=== PATIENT | female | born 1955 | race Caucasian/White ===

== ENCOUNTER 2023-03-22 12:41 | Emergency (ER) | payer MEDICARE, SELFPAY ==
--- NOTE | 2023-03-22 13:21 | ED.WOUNDLAC ---
HPI - Wound/Laceration General Chief Complaint: Wound/Laceration Stated Complaint: lt middler finger laceration Time Seen by Provider: 03/22/23 14:18 Source: patient and RN notes reviewed Mode of arrival: ambulatory Limitations: no limitations History of Present Illness HPI narrative: 67-year-old female presents with concern for laceration to the 3rd digit of the left hand. Reports she was trying to separate frozen chicken breast with a paring knife when she cut her finger. She is up-to-date on her tetanus vaccination. Related Data Home Medications Medication Instructions Recorded Confirmed acetaminophen 500 mg capsule 500 mg PO Q6H 12/30/21 08/14/22 aspirin 81 mg chewable tablet 81 mg PO DAILY 12/30/21 08/14/22 cholecalciferol (vitamin D3) 25 25 mcg PO DAILY 12/30/21 08/14/22 mcg (1,000 unit) capsule cyanocobalamin (vitamin B-12) 500 500 mcg PO BID 12/30/21 08/14/22 mcg tablet ibuprofen 200 mg tablet 200 mg PO Q6H PRN 12/30/21 08/14/22 magnesium 200 mg tablet 250 mg PO DAILY 12/30/21 08/14/22 qlfjoylh-vjbs-rwoe 8 mg-folic 400 1 tablet PO DAILY 12/30/21 08/14/22 mcg-K 50 mcg-lutein 300 mcg tablet (Centrum Silver Women) ascorbate calcium (vitamin C) 500 500 mg PO DAILY 07/13/22 08/14/22 mg tablet estradiol 0.5 mg tablet 0.5 mg PO WEEKLY 07/13/22 08/14/22 garlic 100 mg tablet 1,000 mg PO DAILY 07/13/22 08/14/22 levothyroxine 88 mcg tablet 88 mcg PO DAILY 09/17/22 Allergies Allergy/AdvReac Type Severity Reaction Status Date / Time Sulfa (Sulfonamide Allergy Severe Hives Verified 12/01/22 10:23 Antibiotics) sulfamethoxazole Allergy Severe HIVES, Verified 12/01/22 10:23 SWELLING itraconazole Allergy Unknown Hives Verified 12/01/22 10:23 trimethoprim Allergy Unknown Unknown Verified 12/01/22 10:23 amoxicillin AdvReac Severe Nausea and Verified 12/01/22 10:23 Vomiting Review of Systems Review of Systems: CONSTITUTIONAL: Denies malaise, chills, sweats, or fever. SKIN: Reports laceration to the 3rd digit of the left hand MUSCULOSKELETAL: Denies muscle skeletal pain NEUROLOGIC: Denies numbness, weakness All systems reviewed & are unremarkable except as noted in HPI and below PMFSH Past Medical History Medical History Broken wrist Cataract History of hysterosalpingogram Toenail fungus Surgical History Surgical History H/O hysterectomy for benign disease History of Achilles tendon repair History of endometrial ablation Family History Family History Mother Hypertension Breast cancer Diabetes mellitus Cerebrovascular accident Father Heart disease Other Family history of allergic disorder Family history of cardiac disorder Family history of malignant neoplasm of breast in first degree relative Family history of type 2 diabetes mellitus Social History Social History Smoking status: Never smoker Second hand tobacco smoke exposure: No Alcohol intake: current Drinks per week: 2 Substance use: never Substance use type: does not use Lack of Transportation: No Lack of Food: Never True Current Housing: I Have Housing Concerned About Future Housing: No Difficulty Paying Gas/Electric Bills: No Difficulty Paying for Meds: No Currently Unemployed: No Education: High School Diploma/GED Difficulty w/ Childcare or Family Care: No Living arrangements: with family Occupation/Education: retired Gender identity (if verbalized by the patient): Female Sexual Orientation (if Verbalized by the Patient): Straight or Heterosexual Comments At time of signature, agree with nursing past medical, surgical, social and family history. There is no relevant family history pertinent to the presenting complaint Exam Narrative: GENERAL: Wel
[2023-03-22 14:00] VITALS: BP 172/90; PULSE 62; RESP 16; TEMP 37; O2SAT 100
== END 2023-03-22 14:55 | disposition home or self-care (01) ==
PROVIDERS: Emergency Provider Nurse Practitioner; PCP Physician Assistant Medical
DX: S61.213A Laceration without foreign body of left middle finger without damage to nail, initial encounter (principal); W26.0XXA Contact with knife, initial encounter; H26.9 Unspecified cataract; Z79.82 Long term (current) use of aspirin
CPT/HCPCS: 12001; 99212; G0463

== ENCOUNTER 2024-05-08 16:38 | Emergency (ER) | payer MEDICARE, SELFPAY ==
[2024-05-08 16:53] VITALS: BP 154/93; PULSE 79; RESP 18; TEMP 36.4; O2SAT 100
--- NOTE | 2024-05-08 17:00 | ED.WOUNDLAC ---
HPI - Wound/Laceration General Chief Complaint: Wound/Laceration Stated Complaint: RT Hand Injury Time Seen by Provider: 05/08/24 17:01 Source: patient, RN notes reviewed and old records reviewed Mode of arrival: ambulatory Limitations: no limitations History of Present Illness HPI narrative: 68 year old female presents to the [facility] with a laceration caused by a broken glass to the right hand palmar aspect proximal 5th metacarpal area. Bleeding is controlled. Last Tdap was 12/2021 Related Data Home Medications ?Medication ?Instructions ?Recorded ?Confirmed ?Last Taken ?Type acetaminophen 500 mg capsule 500 mg PO Q6H 12/30/21 12/30/23 Unknown History aspirin 81 mg chewable tablet 81 mg PO DAILY 12/30/21 12/30/23 Unknown History cholecalciferol (vitamin D3) 25 25 mcg PO DAILY 12/30/21 12/30/23 Unknown History mcg (1,000 unit) capsule cyanocobalamin (vitamin B-12) 500 500 mcg PO BID 12/30/21 12/30/23 Unknown History mcg tablet magnesium 200 mg tablet 250 mg PO DAILY 12/30/21 12/30/23 Unknown History dkualyii-hjhs-wrjm 8 mg-folic 400 1 tablet PO DAILY 12/30/21 12/30/23 Unknown History mcg-K 50 mcg-lutein 300 mcg tablet (Centrum Silver Women) garlic 100 mg tablet 1,000 mg PO DAILY 07/13/22 12/30/23 Unknown History cetirizine 10 mg tablet (Zyrtec) 10 mg PO DAILY PRN 08/16/23 12/30/23 Unknown History estradiol 0.05 mg/24 hr weekly 1 patch transdermal WEEKLY 11/04/23 12/30/23 Unknown History transdermal patch Allergies Allergy/AdvReac Type Severity Reaction Status Date / Time itraconazole Allergy Intermediate Hives Verified 05/08/24 16:50 sulfamethoxazole Allergy Intermediate HIVES, Verified 05/08/24 16:50 SWELLING trimethoprim Allergy Intermediate Hives Verified 05/08/24 16:50 Sulfa (Sulfonamide Allergy Mild Hives Verified 05/08/24 16:50 Antibiotics) amoxicillin AdvReac Intermediate Nausea and Verified 05/08/24 16:50 Vomiting Review of Systems Review of Systems: All systems reviewed & are unremarkable except as noted in HPI and below Constitutional: Constitutional: Reports no additional constitutional complaints ENT: Reports system reviewed and no additional complaints, except as documented Cardiovascular: Cardiovascular: Reports no additional cardiovascular complaints, Denies chest pain and Denies dyspnea Respiratory: Respiratory: Reports no additional respiratory complaints, Denies chest congestion, Denies cough and Denies dyspnea Musculoskeletal: Musculoskeletal: Reports no additional musculoskeletal complaints Integumentary/Breasts: Skin/Breast: Reports as per [facility] Past Medical History Medical History CKD (chronic kidney disease), stage II Broken wrist Cataract History of hysterosalpingogram Burn of hand, left, second degree Toenail fungus Surgical History Surgical History History of endometrial ablation History of Achilles tendon repair H/O hysterectomy for benign disease Family History Family History Mother Hypertension Breast cancer Diabetes mellitus Cerebrovascular accident Father Heart disease Other Family history of allergic disorder Family history of cardiac disorder Family history of malignant neoplasm of breast in first degree relative Family history of type 2 diabetes mellitus Social History Social History Social History: 12/23/23 Patient declined SDOH Smoking status: Never smoker Second hand tobacco smoke exposure: No Alcohol intake: current Drinks per week: 2 Substance use: never Substance use type: does not use Lack of Transportation: No Lack of Food: Never True Current Housing: I Have Housing Concerned About Future Housing: No Difficulty Paying Gas/Electric Bills: No Difficulty Paying for Meds: No Currently Unemployed: No Education: High School Diploma/GED Difficulty w/ Childcare or Family Care: No Living arrangements: with family Occupation/Education: retired Gender identity (if verbalized by the patient): Female Sexual Orientation (if Verbalized by the Patient): Straight or Heterosexual Comments At the time of my signature, I reviewed and agree with the nursing past medical, surgical, social, and family history. There is no relevant family history pertinent to the patient complaint. Exam Const: General: cooperative, healthy appearing, comfortable, no acute distress, well developed, alert and well nourished Nutritional Appearance: well nourished Orientation/consciousness: patient oriented x3 Limitations: no limitations HENMT: Head: normal to inspection Eyes: General: appearance normal, both eyes and all related structures Alignment and Position: alignment normal Neck: Neck: normal visual inspection, full ROM, no lymphadenopathy and no meningeal signs Chest: Chest palpation & inspection: normal inspection of the chest Resp: Effort & Inspection: normal respiratory effort and able to speak in complete sentences Auscultation: clear to auscultation bilaterally, no crackles, no rales, no rhonchi and no wheezes Cardio: Rate: regular rate Skin: General skin exam: normal color and no rashes or lesions noted Wounds: wounds noted Other: Right hand laceration Neuro: General: patient oriented x3, gait normal, moves all extremities and no meningeal signs Cognition (Neuro): normal cognition Speech: normal speech Gait exam (Neuro): Normal gait present Extrem: General: normal to inspection, full ROM, capillary refill normal and normal gait Psych: Appearance: grossly normal and well kempt Mental Status: mental status grossly normal Speech and movement: Normal speech and movement present and Clear speech present Affect: normal affect Attitude: cooperative Course Course Level of Care: Express Care Visit Vital Signs Vital signs: Vital Signs Temperature 97.5 F L 05/08/24 16:53 Pulse Rate 79 05/08/24 16:53 Respiratory Rate 18 05/08/24 16:53 Blood Pressure 154/93 H 05/08/24 16:53 Pulse Oximetry 100 05/08/24 16:53 Oxygen Delivery Room Air 05/08/24 16:53 Temperature 97.5 F L 05/08/24 16:53 Pulse Rate 79 05/08/24 16:53 Respiratory Rate 18 05/08/24 16:53 Blood Pressure 154/93 H 05/08/24 16:53 Pulse Oximetry 100 05/08/24 16:53 Oxygen Delivery Room Air 05/08/24 16:53 Reviewed Procedures Laceration Laceration 1: Date: 05/08/24 Time: 17:20 Site: hand Side (If applicable): right Size (cm): 1.5 Description: linear Depth: simple, single layer Local Anesthetic: lidocaine 1% Amount of anesthesia used (mL): 4.5 Pre-repair: wound explored and irrigated (100) ====== Skin Level ====== Skin layer closed with: nylon Size (cm): 5-0 Number of sutures: 5 Technique: simple, interrupted ====== Subcutaneous Layer ====== ====== Muscle Layer ====== ====== Tendon Layer ====== MDM - Wound/Laceration MDM Narrative Medical decision making narrative: Patient sitting comfortably in exam room. Nontoxic, vitals stable except blood pressure mildly elevated. Patient presents after cutting hand on a broken glass. Five sutures placed. Tape patient tolerated well. Patient is appropriate for outpatient treatment with close follow-up Discharge instructions reviewed with patient, as well as provided in writing per nursing staff. The instructions also include specific and strict return/GO TO THE ER as well as f/u information. All questions have been answered, and the patient deny any further questions with discharge and discharge plan. Some parts of this dictation were generated by voice recognition software and may contain typographical and/or grammatical inaccuracies. Differential Diagnosis Differential diagnosis: Likely laceration, abrasion and avulsion of skin Critical Care Time Critical Care Time Critical Care Time: No Discharge Plan Discharge Clinical Impression: Laceration of hand, right Qualifiers: Encounter type: initial encounter Foreign body presence: without foreign body Qualified Code(s): S61.411A - Laceration without foreign body of right hand, initial encounter Patient Disposition: Home, Self-Care Condition: Stable Instructions: Antibiotic Form, Care For Your Stitches (ED), Laceration (ED) Additional Instructions: Wash area twice daily with warm soapy water, pat dry. Wear a Band-Aid when not at home. When at home try leaving open to air for minimum of 4-5 hours per day. Ice and elevate every 2-3 hours for 15-20 minutes while awake. Take Tylenol as needed for pain per package instructions Follow-up with primary care provider in approximately 12-14 days for suture removal Patient Language: Turkish Prescriptions: No Action cholecalciferol (vitamin D3) 25 mcg (1,000 unit) capsule 25 mcg PO DAILY magnesium 200 mg tablet 250 mg PO DAILY cyanocobalamin (vitamin B-12) 500 mcg tablet 500 mcg PO BID aspirin 81 mg tablet,chewable 81 mg PO DAILY Centrum Silver Women 8 mg iron-400 mcg-300 mcg tablet 1 tablet PO DAILY acetaminophen 500 mg capsule 500 mg PO Q6H garlic 100 mg tablet 1,000 mg PO DAILY estradiol 0.05 mg/24 hr patch weekly 1 patch transdermal WEEKLY cetirizine [Zyrtec] 10 mg tablet 10 mg PO DAILY PRN ubrogepant 50 mg tablet 50 mg tablet 0RF levothyroxine 100 mcg tablet 100 mcg PO DAILY Qty: 90 1RF Rx Instructions: DOSE INCREASE 12/20/23 amitriptyline 25 mg tablet 25 mg PO QHS Qty: 90 0RF rizatriptan 10 mg tablet 10 mg PO ONCE Qty: 36 0RF Rx Instructions: as a single dose. Follow-up/Referrals: Giulia Hall PA-C [Primary Care Provider] - 2 Weeks ([facility] follow-up, blood pressure check, 154/93 Suture removal) Time of Disposition: 17:36
--- OUTSIDE RECORDS SUMMARY | 2024-05-08 18:53 | XMS_ITS | Clinical Summary ---
Author Organization [facility] Address [address] [place] [address] Care Team Providers Care Cyber Analyst Name Role Phone Unavailable Primary Care Provider Unavailabl e Source Comments [facility] [employer],non-owned Affiliates and Associated Physician Practices is amultiple site organization consisting of ambulatory clinics and hospital sitesin [place], [place], [place] and [place]. This disclosure is being madepursuant to the Care Everywhere program and may not contain all information available regarding this patient. Last updated 17.[facility] [employer] Social History Tobacco Use Types Packs/Day Years Used Date Smoking Tobacco: Never Assessed Sex and Gender Information Value Date Recorded Sex Assigned at Not on file Gender Identity Not on file Sexual Orientation Not on file Plan of Treatment Health Maintenance Due Date Last Done Comments BONE DENSITY TESTING 1955 COLOGUARD (AGES 45-75) - COL ON CA SCREENING 1955 COLON MONITORING 1955 COLONOSCOPY - COLON CA SCREENING 1955 CT COLONOGRAPHY - COLON CA SCREENING 1955 Colorectal Cancer Screening 1955 FIT - COLON CA SCREENING 1955 FLEX SIG - COLON CA SCREENING 1955 LIPID TESTING 1955 MAMMOGRAM 1955 HEPATITIS C SCREENING 09/08/1973 DTAP/TDAP/TD VACCINES (1 - Tdap) 09/12/1974 PNEUMOCOCCAL VACCINE 50+ (1 of 1 - PCV) 09/12/2005 ZOSTER VACCINE (1 of 2) 09/12/2005 COVID-19 VACCINE ( - 2023-2 5 season) 2023 INFLUENZA VACCINE (#1) 2023 DEPRESSION SCREENING 02/23/2024 Respiratory Syncytial Virus (RSV) Vaccine Pt: or over 60 yrs (1 - 1-dose 75+ series) 09/12/2030 HEPATITIS B VACCINE Aged Out No longe r eligible based on patient's age to complete this topic HIB VACCINE Aged Out No longer eligi ble based on patient's age to complete this topic HPV VACCINE Aged Out No longer eligi ble based on patient's age to complete this topic MENINGOCOCCAL (Group B) VACC INE SHARED DECISION-MAKING Aged Out No longer eligibl e based on patient's age to complete this topic MENINGOCOCCAL GROUPS A/C/Y/W VACCINE Aged Out No longer eligible b ased on patient's age to complete this topic
--- OUTSIDE RECORDS SUMMARY | 2024-05-08 18:53 | XMS_ITS | Referral Summary ---
Author Organization [facility] Address [address] [place] [address] Care Team Providers Care Testing Lead Name Role Phone Unavailable Primary Care Provider Unavailabl e Source Comments [facility],non-owned Affiliates and Associated Physician Practices is amultiple site organization consisting of ambulatory clinics and hospital sitesin [place], [place], [place] and [place]. This disclosure is being madepursuant to the Care Everywhere program and may not contain all information available regarding this patient. Last updated 17.[facility] Social History Tobacco Use Types Packs/Day Years Used Date Smoking Tobacco: Never Assessed Sex and Gender Information Value Date Recorded Sex Assigned at Not on file Gender Identity Not on file Sexual Orientation Not on file Plan of Treatment Not on file
--- OUTSIDE RECORDS SUMMARY | 2024-05-08 18:53 | XMS_ITS | Encounter Summary ---
Author Organization [facility] Address [address] [place] [address] Care Team Providers Care Supplier Engineer Name Role Phone Giulia Hall Primary Care Provider Encounter Details Date Type Department Care Team (Late st Contact Info) Description 12/15/2023 [facility] Message [address] [id number] [facility], [facility] Provider Customer Service Inquiry - New Account Device Linked Communication Social History Tobacco Use Types Packs/Day Years Used Date Smoking Tobacco: Never Assessed Comments Unknown Sex and Gender Information Value Date Recorded Sex Assigned at Female 03/07/2024 1:39 PM AERODYNAMIC CONSULTANT Legal Sex Female 5:50 PM CDT Gender Identity Not on file Sexual Orientation Not on file documented as of this encounter Plan of Treatment Upcoming Encounters Date Type Department Care Team (Late Contact Info) Description 06/19/2024 3:30 PM CDT Appointment [facility] [address] [place] [address] Parris Velasquez MD [address] [place], [place] [id number] 06/20/2024 8:00 AM CDT Laboratory Only [facility] [address] [place] [address] Kingsley Cosme MD [address] [place] [address] documented as of this encounter Visit Diagnoses Not on filedocumented in this encounter Care Teams Supplier Engineer Relationship Specialty Start Date End Date Giulia Hall PA [address] [place] [id number] PCP - General PHYSICIAN CENTRAL OFFICE MECHANIC 01/07/22 documented as of this encounter
--- OUTSIDE RECORDS SUMMARY | 2024-05-08 18:53 | XMS_ITS | Patient Health Summary ---
Author Organization [facility] Address [address] [place] [address] Care Team Providers Care Audiovisual Equipment Operator Name Role Phone Unavailable Primary Care Provider Unavailabl e Note from [facility],non-owned Affiliates and Associated Physician Practices is amultiple site organization consisting of ambulatory clinics and hospital sitesin [place], [place], [place] and [place]. This disclosure is being madepursuant to the Care Everywhere program and may not contain all information available regarding this patient. Last updated 17.[facility] [employer] Social History Tobacco Use Types Packs/Day Years Used Date Smoking Tobacco: Never Assessed Sex and Gender Information Value Date Recorded Sex Assigned at Not on file Gender Identity Not on file Sexual Orientation Not on file Procedures * DERMATOPATHOLOGY(Performed 03/21/2013) * CYTOLOGY SMEAR PAP(Performed 11/26/1997) * CYTOLOGY SMEAR PAP(Performed 12/19/1996) * CYTOLOGY PAP TAX SPECIALIST(Performed 11/19/1995) Results * PATHOLOGY TISSUE FOR DERMATOLOGY (03/21/2013 12:00 AM MURAL ARTIST) Result CASE: [id number] PATIENT: PAOLA MORGAN PATHOLOGIC DIAGNOSIS: A. Left forearm: DERMATOFIBROMA B. Right ant. shoulder: SEBORRHEIC KERATOSIS, IRRITATED AND INFLAMED CLINICAL DATA: A: R/O foreign body. B: R/O BCC, ISK. Check margins. GROSS DESCRIPTION: A: Received is one formalin filled container labeled with the patient's name and designated left forearm. The specimen consists of a punch biopsy measuring [id number]. Jar 0. B: Received is one formalin filled container labeled with the patient's name and designated right ant shoulder. The specimen consists of a shave biopsy measuring 9x6x2 mm. Jar 0. MICROSCOPIC DESCRIPTION: SPECIMEN A: Within the dermis, there are fibrohistiocytic cells in haphazard array among coarse collagen bundles. There is overlying epidermal hyperplasia. There is no polarizable material present. SPECIMEN B: Sections show acanthosis, papillomatosis, hyperkeratosis, and squamous eddies. There is a lymphohistiocytic infiltrate within the papillary dermis. Electronically signed out by Geno Herrera M.D. 03/23/2013 2:19:22PM [facility] Comment: Performed at: Dermatopathology Laboratory [facility] Department of Dermatology [address] [place] [address], [address] [place] [address] Phone number: [phone] FAX: [phone] 03/21/2013 03/22/2013 Oracio Houston MD LAB - PATHOLOGY/CYTO LOGY ORDERABLES [facility] [address] [place] [address]. [address] [place] [address], [facility] [phone] * CYTOLOGY SMEAR PAP (11/26/1997 10:09 AM CDT) Only the most recent of2 resultswithin the time period is included. Result CASE NUMBER [id number] Comment: ORDERING PHYSICIAN ANAND BAUER SPECIMEN TYPE PAP Smear Date 11/26/1997 Procedure Vaginal, 1 smear received Specimen Adequacy Satisfactory for Evaluation Categorization Within Normal Limits Snomed. 12/05/1997 1520 <1> Contact Lens Cutter Andre Stockton (ASCP) PAP Footnote The PAP smear is only a screening procedure to aid in the detection of cervical cancer and its precursors. It is not a diagnostic procedure and should not be used as the sole means to detect cervical cancer. Both false negative and false positive results have been experienced. MISCELLANEOUS SAMPLES / Unknown 11/26/1997 10:09 AM CDT 11/30/1997 10:09 AM CDT Historical Provider LAB - PATHOLOGY/C YTOLOGY ORDERABLES * CYTOLOGY PAP TAX SPECIALIST (11/19/1995 10:30 AM CDT) Result CASE NUMBER [id number] Comment: ORDERING PHYSICIAN ANAND BAUER SPECIMEN TYPE PAP Smear Date 11/19/1995 Procedure Vaginal Specimen Adequacy Satisfactory for Evaluation Categorization Within Normal Limits Contact Lens Cutter Andre Mcmahan(ASCP) MISCELLANEOUS SAMPLES / Unknown 11/19/1995 10:30 AM CDT 11/20/1995 10:30 AM CDT Historical Provider LAB - PATHOLOGY/C YTOLOGY ORDERABLES
--- OUTSIDE RECORDS SUMMARY | 2024-05-08 18:53 | XMS_ITS | Clinical Summary ---
Author Organization [facility] Address [address] [place] [id number] Care Team Providers Care [employer] Penc[employer] Dipper Name Role Phone Marni Hall Primary Care Provider [phone] Encounters Date Type Department Care Team Description 04/27/2024 Patient Self-Triage [facility] DEFAULT [facility] Provider 03/07/2024 1:40 PM GRAIN THRESHER - 03/07/2024 11:59 PM [facility] Hospital Encounter [facility] Diagnostic Imaging [address] [place] [address] Marni Hall PA Discharge Disposition: Home or Self Care (Routine Discharge) 03/07/2024 Travel from Last 3 Months Family History Medical History Relation Comments Breast Cancer Maternal Aunt Breast Cancer Mother Relation Status Comments Maternal Aunt Alive Mother Social History Tobacco Use Types Packs/Day Years Used Date Smoking Tobacco: Never Assessed Comments Unknown Sex and Gender Information Value Date Recorded Sex Assigned at Female 03/07/2024 1:39 PM GRAIN THRESHER Legal Sex Female 5:50 PM CDT Gender Identity Not on file Sexual Orientation Not on file Last Filed Vital Signs Vital Sign Reading Time Taken Comments Blood Pressure 118/82 07/28/2013 11:36 AM CDT Pulse 53 07/28/2013 11:36 AM CDT Temperature - - Respiratory Rate - - Oxygen Saturation - - Inhaled Oxygen Concentration - - Weight 62.6 kg (138 lb) 07/28/2013 11:36 AM CDT Height 162.6 cm (5' 4 ) 07/28/2013 11:36 AM CDT Body Mass Index 23.69 07/28/2013 11:36 AM CDT Plan of Treatment Upcoming Encounters Date Type Department Care Team (Late st Contact Info) Description 06/19/2024 3:30 PM CDT Appointment [facility] Mammography [address] [place] [address] Racquel Mendoza MD [address] [place] [address] 06/20/2024 8:00 AM CDT Laboratory Only [facility] [address] [place] [address] Kingsley Cosme MD [address] [place] [address] Health Maintenance Due Date Last Done Comments Colorectal Cancer Screening Colonoscopy (10 Years) 1955 Depression Screening PHQ-9 1967 Hepatitis C 09/12/1973 Zoster Vaccines (1 of 2) 09/12/2005 Annual Medicare Wellness Visit 09/12/2020 Pneumococcal Vaccine: 65+ Years (1 of 1 - PCV) 09/12/2020 DTaP, Tdap and Td Vaccines (2 - Td or Tdap) 06/06/2022 06/06/2012 COVID-19 Vaccine (3 - season) 2023 06/13/2020, 05/16/2020 Influenza Adult (#1) 2023 Mammogram Screening 06/16/2025 06/17/2023, 05/22/2022, 04/20/2022, Additional history exists RSV Immunization or 60+ Years (1 - 1-dose 75+ series) 09/12/2030 Dexa Scan (General) Completed 03/07/2024, 2 Meningococcal B Vaccine Aged Out No l onger eligible based on patient's age to complete this topic Meningococcal Vaccine Aged Out No juliana liz eligible based on patient's age to complete this topic RSV Immunizations Under 20 Months Aged Out No longer eligible based on patient's age to complete this topic Procedures Procedure Name Priority Date/Time Associated Diagnosis Comments BONE DENSITY/DEXA Routine 03/07/2024 2:0 5 PM GRAIN THRESHER Other primary ovarian failure MG SCREENING W JANETH ELADIO DIGI Routine 06/17/2023 3:34 PM CDT Visit for screening mammogram from Last 3 Months or Most Recently Relevant to Health Maintenance Results * BONE DENSITY/DEXA (03/07/2024 2:05 PM GRAIN THRESHER) Anatomical Region Laterality Modality Bone Bone Density 03/07/2024 2:05 PM GRAIN THRESHER Impressions 03/07/2024 2:06 PM GRAIN THRESHER IMPRESSION: WHO Classification: normal RECOMMENDATIONS: All patients should ensure an adequate intake of dietary calcium and vitamin D. The NOF recommend adults under the age of 50 need 1000 mg of calcium and 400-800 IU of vitamin D daily. Effective therapy for the prevention and treatment of osteoporosis include bisphosphonates. FOLLOW-UP: People with diagnosed cases of osteoporosis or at high risk for fracture should have regular bone mineral density test. For patients eligible for Medicare, routine testing is allowed once every 2 years. Testing frequency can be increased to one year for patients who have rapidly progressing disease, those who are receiving or discontinuing medical therapy to restore bone mass, or have additional risk factors. Ordered By: MARNI HALL Interpreted By: Oracio Pires MD, 03/07/2024 2:05 PM Narrative 03/07/2024 2:06 PM GRAIN THRESHER [facility] [address] [place] [id number] EXAMINATION: BONE DENSITY/DEXA INDICATIONS: Other primary ovarian failure TECHNIQUE: DEXA bone mineral density evaluation was performed in the AP projection over the lumbar spine and both hips utilizing standard imaging techniques. FINDINGS: The BMD measured at the AP spine L1-L4 is 1.199 g/cm? with a T-score of 1.4. The BMD measured at the left femoral neck is 0.880 g/cm? with a T-score of 0.3. The BMD measured at the left hip is 1.011 g/cm? with a T-score of 0.6. The BMD measured at the right femoral neck is 0.894 g/cm? with a T-score of 0.4. The BMD measured at the right hip is 1.035 g/cm? with a T-score of 0.8. FRAX 10-year fracture risk: Not reported because all T-scores are at or above -1.0 Procedure Note Oracio Pires MD - 03/07/2024 [facility] [address] [place] [address] EXAMINATION: BONE DENSITY/DEXA INDICATIONS: Other primary ovarian failure TECHNIQUE: DEXA bone mineral density evaluation was performed in the APprojection over the lumbar spine and both hips utilizing standard imagingtechniques. FINDINGS: The BMD measured at the AP spine L1-L4 is 1.199 g/cm? with a T-score of1.4. The BMD measured at the left femoral neck is 0.880 g/cm? with a T-score of0.3. The BMD measured at the left hip is 1.011 g/cm? with a T-score of 0.6. The BMD measured at the right femoral neck is 0.894 g/cm? with a T-scoreof 0.4. The BMD measured at the right hip is 1.035 g/cm? with a T-score of 0.8. FRAX 10-year fracture risk: Not reported because all T-scores are at or above -1.0 IMPRESSION: WHO Classification: normal RECOMMENDATIONS: All patients should ensure an adequate intake of dietary calcium andvitamin D. The NOF recommend adults under the age of 50 need 1000 mg ofcalcium and 400-800 IU of vitamin D daily. Effective therapy for theprevention and treatment of osteoporosis include bisphosphonates. FOLLOW-UP: People with diagnosed cases of osteoporosis or at high risk for fractureshould have regular bone mineral density test. For patients eligible forMedicare, routine testing is allowed once every 2 years. Testing frequencycan be increased to one year for patients who have rapidly progressingdisease, those who are receiving or discontinuing medical therapy torestore bone mass, or have additional risk factors. Ordered By: MARNI HALL Interpreted By: Oracio Pires MD, 03/07/2024 2:05 PM Marni DIAMOND DEXA Final Result * MG SCREENING W JANETH ELADIO DIGI (06/17/2023 3:34 PM CDT) Anatomical Region Laterality Modality Breast Bilateral Mammography 06/17/2023 5:23 PM CDT Impressions 06/17/2023 5:29 PM CDT ===== IMPRESSION: ===== 1. Stable mammographic appearance with no new findings to suggest malignancy in either breast. Assessment: ACR BI-RADS 2 - BENIGN FINDING(S) Recommendation: 1:Routine Screening Bilateral Comments: Ordered By: RACQUEL MENDOZA Interpreted By: Emiliana Hendrickson, 06/17/2023 5:23 PM Narrative 06/17/2023 5:29 PM CDT EXAMINATION: Digital bilateral screening mammogram with 3-D tomosynthesis EXAM DATE/TIME: 06/17/2023 3:11 PM REASON FOR EXAM: SCREENING Mother with breast carcinoma at age 62. Maternal aunt with breast carcinoma COMPARISON: 04/20/2022. 04/18/2021 Technique: Digital screening mammography of both breasts was performed in addition to 3-D Tomosynthesis technique. This study was read with the assistance of a computer-aided detection system. Tissue density: The breast tissue is heterogeneously dense, which may obscure small masses. Findings: Benign calcifications. Benign nodularity. There is no new focal asymmetry, dominant mass lesion, area of skin thickening, or cluster of suspicious appearing calcifications in either breast to suggest malignancy. 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
== END 2024-05-08 17:40 | disposition home or self-care (01) ==
PROVIDERS: Emergency Provider Nurse Practitioner; PCP Physician Assistant Medical
DX: S61.412A Laceration without foreign body of left hand, initial encounter (principal); W25.XXXA Contact with sharp glass, initial encounter; N18.2 Chronic kidney disease, stage 2 (mild); Z79.82 Long term (current) use of aspirin
CPT/HCPCS: 12001; 99212; G0463; J2003